=== PATIENT | male | born 1950 | race Caucasian/White ===

== ENCOUNTER 2023-02-28 15:36 | Emergency (ER) | payer OTHER, SELFPAY ==
[2023-02-28 15:39] VITALS: BP 130/68; PULSE 55; RESP 18; TEMP 37.1; O2SAT 98
--- NOTE | 2023-02-28 16:00 | DI.RAD_ITS ---
Exam(s) XR ELBOW LT COMPLETE EXAM: XR ELBOW LT COMPLETE CLINICAL HISTORY: pain, suspect lateral epicondylitis. TECHNIQUE: 2D digital imaging was performed. COMPARISON: No exams were available for comparison FINDINGS: 3 views No evidence of acute fracture nor joint effusion. There is no swelling olecranon. Radial head and n norma unremarkable as does the capitellum. Medial epicondyle unremarkable. There is some cortical irregularity-small bony excrescence at the le myron of the lateral epicondyle. May be consistent with element of epicondylitis. IMPRESSION: Findings which are somewhat suspicious lateral epicondylitis. DATA REPOSITORY: RADIATION DOSE DELIVERED:
--- NOTE | 2023-02-28 16:13 | W.ED.GENAD ---
Discharge Plan Disposition Patient Disposition: Home Discharge Details Clinical Impression: Epicondylitis, lateral Primary Care Provider: Robin Clifford ED Provider: Bharti Castro Home Meds and New Rx's Prescriptions: New methylprednisolone [Medrol (Vinicio)] 4 mg tablets,dose pack See Rx Instructions .ROUTE .COMPLEX Qty: 21 0RF Rx Instructions: orally per package directions Continued pediatric multivitamin 1 EACH tablet,chewable 1 ea PO DAILY levothyroxine [Synthroid] 25 MCG tablet 0.15 mg PO DAILY aspirin [Aspir-81] 81 MG tablet,delayed release (DR/EC) 81 mg PO DAILY Qty: 1 omega-3 fatty acids-fish oil [Fish Oil] 1 EACH capsule 1 ea PO DAILY metoprolol succinate 50 MG tablet extended release 24 hr 50 mg PO DAILY clopidogrel [Plavix] 75 MG tablet 75 mg PO DAILY nitroglycerin [Nitrostat] 0.4 MG tablet, sublingual 0.4 mg Sublingual DAILY lisinopril 5 MG tablet 5 mg PO DAILY rosuvastatin [Crestor] 10 MG tablet 10 mg PO QAM Discharge Instructions Additional Instructions: Use the brace at your discretion You may also use a sling while you are up and about You may apply Voltaren gel, this is [id number] to the affected area and take Tylenol arthritis every 6 hours, do not exceed 3 g of Tylenol in a day Refrain from repetitive motion and heavy lifting with the affected arm until you are symptoms improve A muscle listing physical therapy for you to follow-up Return earlier should you have new or worsening complaints Stand Alone Forms: Physical Therapy Referral Referrals: Robin Clifford MD [Primary Care Provider] - Discharge Data Discharge Date/Time-TO BE ENTERED AT DEPARTURE: 02/28/23 16:26 Medical Decision Making 72-year-old gentleman presents with left elbow pain, and engages in repetitive motion We will [facility] x-[facility], x-ray per radiology interpretation my review shows evidence of lateral epicondylitis consistent with my exam No obvious clinical evidence for DVT, medial epicondylitis, or fracture We will purchase a band [id number] We will refer to physical therapy We will treat for lateral epicondylitis which is consistent with my exam, no obvious joint swelling, no erythema, neurovascularly intact, no tenderness to neck, no chest pain or shortness of breath HPI General Date/Time Provider Initiated Documentation: 02/28/23 15:46. HPI Narrative: 72-year-old gentleman with history of coronary artery disease presents with report of elbow pain. He has had this intermittently in the past. He states that he engages in a lot of repetitive motion. He denies any additional injuries. Denies any known trauma to the affected area. Denies any fever or chills. Pain is exacerbated with AB duction and external rotation per patient. Related Data Home Medications Medication Instructions Recorded Confirmed Synthroid 25 mcg tablet 0.15 mg PO DAILY 08/25/13 07/09/17 (levothyroxine) pediatric multivitamin 1 ea PO DAILY 08/25/13 07/09/17 aspirin 81 mg tablet,delayed 81 mg PO DAILY #1 tab-cap 04/28/14 07/09/17 release (Aspir-) omega-3 fatty acids-fish oil 340 1 ea PO DAILY 07/02/17 07/09/17 mg-1,000 mg capsule (Fish Oil) clopidogrel 75 mg tablet (Plavix) 75 mg PO DAILY 07/09/17 07/09/17 lisinopril 5 mg tablet 5 mg PO DAILY 07/09/17 07/09/17 metoprolol succinate 50 mg 50 mg PO DAILY 07/09/17 07/09/17 tablet,extended release 24 hr nitroglycerin 0.4 mg sublingual 0.4 mg sublingual DAILY 07/09/17 07/09/17 tablet (Nitrostat) rosuvastatin 10 mg tablet (Crestor) 10 mg PO QAM 07/09/17 07/09/17 methylprednisolone 4 mg tablets in See Rx Instructions PO .COMPLEX 02/28/23 a dose pack (Medrol (Vinicio)) #21 dose pk Previous Rx's Medication Instructions Recorded methylprednisolone 4 mg tablets in See Rx Instructions PO .COMPLEX 02/28/23 a dose pack (Medrol (Vinicio)) #21 dose pk Allergies Allergy/AdvReac Type Severity Reaction Status Date / Time pravastatin AdvReac Intermediate MYALGIA Unverified 07/09/17 12:01 General Stated Complaint: Orthopedic LINDSEY: 3 PFSH All Active Problems (Updated 02/28/23 @ 16:03 by ALEKSANDR Mejias) Asthma (Acute) Hyperlipidemia (Acute) Dyspnea (Acute) Pneumonia (Acute) Epicondylitis, lateral (Acute) Medical History (Updated 02/28/23 @ 16:03 by ALEKSANDR Mejias) Acute myocardial infarction Hyperlipidemia Hypothyroidism Surgical History (Updated 07/16/18 @ 14:33 [facility] Repair of inguinal hernia Family History Mother Heart disease Father Heart disease Sister Diabetes Heart disease Social History Smoking/Tobacco Use Status: Former Tobacco Use Smoking risk assessment performed?: Yes Drug use: Never Do you feel safe in your relationship?: Yes Exam Narrative Exam Narrative: Left elbow without visible evidence of trauma, no swelling, no erythema, tenderness with external rotation palpated over the lateral epicondyle, neurovascularly intact, no tenderness to left shoulder or left wrist Course Vital Signs Vital signs: Vital Signs Temperature 37.1 C 02/28/23 15:39 Pulse 55 L 02/28/23 15:39 Respiratory Rate 18 02/28/23 15:39 Blood Pressure 130/68 02/28/23 15:39 Pulse Oximetry 98 02/28/23 15:39 Temperature 37.1 C 02/28/23 15:39 Temperature Source Skin 02/28/23 15:39 Pulse 55 L 02/28/23 15:39 Respiratory Rate 18 02/28/23 15:39 Blood Pressure 130/68 02/28/23 15:39 Blood Pressure Position Sitting 02/28/23 15:39 Pulse Oximetry 98 02/28/23 15:39 Oxygen Delivery Method Room Air 02/28/23 15:39 Oxygen Flow Rate 0 02/28/23 15:39 Pain Level 6 02/28/23 15:39
== END 2023-02-28 16:26 | disposition home or self-care (01) ==
PROVIDERS: Emergency Provider Physician Assistant; PCP Internal Medicine
DX: M77.12 Lateral epicondylitis, left elbow (principal)
CPT/HCPCS: 99283; 73080

== ENCOUNTER 2024-12-30 17:44 | Outpatient (REF) | payer MEDICARE, SELFPAY ==
[2024-12-30 16:10] LABS: Anion Gap 11.6 mmol/L (3-11); BUN 12 mg/dL (7-18); CO2 24.4 mmol/L (21.0-32.0); CREATININE 1.2 mg/dL (0.70-1.30); Calcium 9.3 mg/dL (8.5-10.1); Chloride 101 mmol/L (98-107); Estimated GFR 63.07 (mL/min/1.73m2); Glucose 92 mg/dL (74-106); Potassium 4.7 mmol/L (3.5-5.1); Sodium 137 mmol/L (136-145); Uric Acid 5.2 mg/dL (3.5-7.2)
== END 2024-12-30 17:45 | disposition home or self-care (01) ==
LOC: NCHCN 17:44
PROVIDERS: PCP Internal Medicine; Visit Provider Family Medicine
DX: M10.9 Gout, unspecified (principal)
CPT/HCPCS: 80048; 84550

== ENCOUNTER 2025-09-02 09:59 | Outpatient (CLI) | payer MEDICARE, SELFPAY ==
[2025-09-02 10:17] LABS: HCT 42.9 % (40.0-50.0); HGB 14.5 g/dL (13.5-17.5); MCH 30.3 pg (27.0-33.0); MCHC 33.8 % (32.0-36.0); MCV 90 fL (80-95); MPV 10.6 fL (8.0-11.0); Platelet Count 202 10^3/uL (130-400); RBC 4.78 10^6/uL (4.36-5.78); RDW 12.1 % (11.8-14.1); RDW-SD 39.7 fL; WBC 5.87 10^3/uL (4.4-10.8)
[2025-09-02 10:42] LABS: ALT 39 U/L (10-49); AST 34 U/L (<34); Albumin 4.2 g/dL (3.2-5.0); Alkaline Phosphatase 78 U/L (46-116); Anion Gap 8.6 mmol/L (3-11); BUN 11 mg/dL (9-23); Bilirubin, Total 0.50 mg/dL (0.2-1.2); CO2 24.4 mmol/L (20.0-31.0); Calcium 9.0 mg/dL (8.3-10.6); Chloride 103 mmol/L (98-107); Glucose 104 mg/dL (74-106); Potassium 4.2 mmol/L (3.5-5.1); Sodium 136 mmol/L (136-145); Total Protein 6.6 g/dL (5.7-8.2)
== END 2025-09-02 10:00 | disposition home or self-care (01) ==
LOC: LBO 10:05
PROVIDERS: PCP Internal Medicine; Visit Provider Radiology Radiation Oncology
DX: C61 Malignant neoplasm of prostate (principal)
CPT/HCPCS: 36415; 80053; 84153; 84403; 85027